=== PATIENT | female | born 1975 | race Hispanic/Latino ===

== ENCOUNTER → 2023-08-29 | Outpatient (CLI) | payer OTHER | END | disposition home or self-care (01) | LOC: RAH 10:30 | PROVIDERS: ATTEND Family Medicine | DX: Z12.31 Encounter for screening mammogram for malignant neoplasm of breast (principal); N63.31 Unspecified lump in axillary tail of the right breast; L72.3 Sebaceous cyst | CPT/HCPCS: 76882; 77067 ==

== ENCOUNTER → 2023-09-19 | Outpatient (CLI) | payer OTHER | END | disposition home or self-care (01) | LOC: RAH 14:22 | PROVIDERS: ATTEND Nurse Practitioner Family | DX: N60.81 Other benign mammary dysplasias of right breast (principal); R92.8 Other abnormal and inconclusive findings on diagnostic imaging of breast | CPT/HCPCS: 76641; 77065 ==

== ENCOUNTER 2023-12-30 13:01 | Emergency (ER) | payer OTHER ==
[~2023-12-30] VITALS: Ht 160 cm; Wt 61.2 kg
[2023-12-30] MEDS: LIDOCAINE HCL 1% 20 ML VIAL INJ STA (17:01)
[2023-12-30] MEDS ORDERED: SULF1TAB42 PO (17:51)
[2023-12-30 18:17] VITALS: BP 124/57; PULSE 98; RESP 14; O2SAT 97
[2023-12-30] MEDS: HYDROCODONE/ACETAMINOPHEN 5/325 MG TAB PO ONE (18:31)
== END 2023-12-30 18:38 | disposition home or self-care (01) ==
LOC: EDH 13:01
DX: L02.411 Cutaneous abscess of right axilla (principal); Z79.899 Other long term (current) drug therapy; Z98.890 Other specified postprocedural states
CPT/HCPCS: 10060

== ENCOUNTER 2025-01-17 13:14 | Emergency (ER) | payer SELFPAY ==
[~2025-01-17] VITALS: Ht 157.5 cm; Wt 63.5 kg
[~2025-01-17 13:14] MED LIST: CEPH500B PO; PANT40TA55 PO; SULF1TAB42 PO
--- NOTE | 2025-01-17 13:20 | NUR ---
EKG COMPLETE IN TRIAGE
--- NOTE | 2025-01-17 14:16 | EKG ---
[facility] Test Date: 2025-01-17 Test Time: 13:17:40 Pat Name: EJ YOUSSEF Department: ED Room: Gender: F Head Inspector: [id number] : 1975 Requested By: FAY GELLER Order Number: [id number] Reading MD: Rafael Hernandez Measurements Intervals Nova Rate: 75 P: 47 FL: 155 QRS: -34 QRSD: 85 T: 42 QT: 384 QTc: 428 Interpretive Statements Sinus rhythm Left axis deviation No previous ECG available for comparison Electronically Signed On 01-20-2025 10:43:48 CDT by Rafael Hernandez Please click the below link to view image of tracing.
[2025-01-17 14:25] LABS: IMMATURE GRANULOCYTE ABSOLUTE 0.02 K/uL (0-1); NUCLEATED RED BLOOD CELLS 0.0 % (0.0-0.19); PLATELET COUNT (AUTO) 151 K/uL (130-400); RED BLOOD CELL COUNT(AUTO) 4.77 MIL/uL (4.00-5.50); RED CELL DISTRIBUTION WIDTH 13.3 % (11.0-15.5); WHITE BLOOD COUNT (AUTO) 5.6 K/uL (4.8-10.8)
[2025-01-17 14:26] LABS: APPEARANCE,URINE TURBID (CLEAR); GLUCOSE, URINE (UA) NEGATIVE (NEGATIVE); LEUKOCYTE ESTERASE ,URINE NEGATIVE Leu/uL (NEGATIVE); NITRATE,URINE NEGATIVE (NEGATIVE); OCCULT BLOOD,URINE NEGATIVE (NEGATIVE)
[2025-01-17 14:32] LABS: CREATININE 1.0 mg/dL (0.5-1.0); GLOMERULAR FILTR. RATE CALC 69.0 mL/min (>90); GLUCOSE,RANDOM 88.0 mg/dL (70-105); SODIUM SERUM 139.0 mmol/L (136-145); UREA NITROGEN, BLOOD 14.0 mg/dL (7-18)
[2025-01-17 14:35] LABS: ADD UA MICROSCOPIC YES
[2025-01-17 14:36] LABS: CREATINE KINASE, TOTAL 48.0 U/L (21-232)
[2025-01-17 14:38] LABS: ASPARTATE AMINOTRANSFERASE 16.0 U/L (10-37); TOTAL PROTEIN, SERUM 7.5 g/dL (6.0-8.3)
[2025-01-17 14:48] LABS: SQUAMOUS EPITHELIAL CELL,UR FEW /HPF (0-2); UNCLASSIFIED CRYSTAL 27 /HPF (None Seen)
[2025-01-17 15:33] LABS: ERYTHROCYTE SEDIMENTATION RATE 12 MM/HR (0-30)
[2025-01-17] MEDS ORDERED: MELO-108 PO (15:42)
--- NOTE | 2025-01-17 15:42 | ERN ---
General Chief Complaint: Chest Pain Stated Complaint: LEFT CHEST PAIN X5 DAYS Time Seen by MD: 13:17 History of Present Illness Initial Comments 49-year-old female, no medical comorbidities, presents for left-sided chest pain and shoulder pain. She reports a pain in the left upper chest and into the left shoulder and left flank area that increases with certain movements and deep respiration. No fevers cough congestion dyspnea swelling or any other symptoms. She reports when she was younger she did get a pleuritic infection requiring admission, but otherwise has no medical comorbidities. Pain/symptoms are nonexertional. Allergies: Coded Allergies: No Known Drug Allergies (Unverified Allergy, Unknown, 12/30/23) Home Meds Active Scripts Cephalexin Monohydrate (Keflex) 500 Mg Cap, 1 CAP PO BID for 10 Days, #20 CAP 0 Refills Prov:TORREY MONTERO MD 08/14/24 Pantoprazole Sodium (Protonix) 40 Mg Ectab, 1 TAB PO DAILY for 30 Days, #30 TAB 0 Refills Prov:TORREY MONTERO MD 08/14/24 Sulfamethoxazole/Trimethoprim (Bactrim Ds Tablet) 800 Mg-160 Mg Tablet, 1 TAB PO BID for 7 Days, #14 TAB 0 Refills Prov:JACKSON WHALEY NP 12/30/23 Past Medical History Past Medical History: Other Medical History Other: PLEURISY Past Surgical History: None Surgical History Other: RT AXILLARY ABSCESS DRAIN ROS Dictation CONSTITUTIONAL: No chills, no fever, no weakness, no diaphoresis, no malaise. HEAD/FACE: No signs of trauma. EENT: No eye pain, no blurred vision, no tearing, no double vision, no ear pain, no ear discharge, no nose pain, no nasal congestion, no throat pain, no throat swelling, no mouth pain. RESPIRATORY: No cough, no orthopnea, no SOB, no stridor, no wheezing. CARDIOVASCULAR: Chest pain. GASTROINTESTINAL/ABDOMINAL: No abdominal pain, no constipation, no diarrhea, no nausea, no vomiting. GENITOURINARY: No abnormal discharge, no dysuria, no frequent urination, no hematuria. No complaints of pain in the genitals. MUSCULOSKELETAL: No back pain, no gout, no joint pain, no joint swelling, no muscle pain, no muscle stiffness, no neck pain. INTEGUMENTARY: No change in color, no change in hair/nails, no dryness, no lesion, no lumps, no rash. NEUROLOGICAL/PSYCH: No anxiety, not depressed, no emotional problem, no headache, no numbness, no pre-existing deficit, no history of seizures, no tremors, no weakness. HEMATOLOGIC/LYMPHATIC: Not anemic, no history of blood clots, no apparent bleeding, no bruising, glands not swollen. All Systems Negative, Except as Noted. Physical Exam Physical Exam Dictation VITAL SIGNS: Reviewed. GENERAL APPEARANCE: Alert, oriented x3, no acute distress. HEAD AND FACE: Non-traumatic. EYES: PERRL, pink conjunctivas, eyelid no trauma, anterior chamber clear. EARS: Pinnas intact and no signs of trauma or erythema. Ear canals clear and no discharge. TMs no erythema. NOSE: No discharge, no bleeding. OROPHARYNX: Mouth normal, teeth no caries, tongue pink. Pharynx clear, no erythema. Tonsils no exudates, no abscesses noted. Mucous membrane moist. NECK: Supple, non-tender, no thyromegaly, no masses, no JVD, no bruits. BREAST: Deferred. CHEST: No tenderness, no crepitus, no paradoxical movement, no retractions. LUNGS: Clear, well-ventilated, symmetric, no rales, no wheezing, no rhonchi, no stridor, good breath sounds bilaterally. HEART: Regular rate, regular rhythm, no murmur, no gallops. VASCULAR: No peripheral edema. ABDOMEN: Soft, positive bowel sounds, nondistended, no guarding, nontender, no rebound, no masses no hepatomegaly, no splenomegaly, no Balderas's sign, no hernias. RECTAL: Deferred. GENITAL: Deferred. NEUROLOGICAL: Normal speech, gross motor function intact, gross sensory function intact. MUSCULOSKELETAL: Neck nontender, full range of motion, back nontender, full range of motion. EXTREMITIES: Nontender, full range of motion. SKIN: Color pink, dry, no turgor, no rash, no lacerations, no abrasions, no contusions. LYMPHATICS: Deferred. Results Laboratory and Microbiology Lab and Micro Result Laboratory Tests Test 01/17/25 13:57 01/17/25 14:03 Urine Color LIGHT-YELLOW (YELLOW) Urine Appearance TURBID (CLEAR) Urine pH 7.5 (5.0-8.0) Urine Specific Juliette 1.016 (1.001-1.031) Urine Protein NEGATIVE mg/dL (NEGATIVE) Urine Glucose (UA) NEGATIVE mg/dL (NEGATIVE) Urine Ketones NEGATIVE mg/dL (NEGATIVE) Urine Occult Blood NEGATIVE (NEGATIVE) Urine Nitrate NEGATIVE (NEGATIVE) Urine Bilirubin NEGATIVE mg/dL (NEGATIVE) Urine Urobilinogen 0.2 mg/dL (0.2-1.0) Urine Leukocyte Esterase NEGATIVE Bessy/uL Urine RBC None /HPF (0-1) Urine WBC 26-50 /HPF (0-1) H Urine Squamous Epithelial Cells FEW /HPF (0-2) Urine Other Crystals (Auto) 27 /HPF (None Seen) Urine Amorphous Crystals (Auto) MOD /LPF (None Seen) Urine Bacteria FEW /HPF (None Seen) Urine HCG, Qualitative NEGATIVE (NEGATIVE) White Blood Count 5.6 K/uL (4.8-10.8) Red Blood Count 4.77 MIL/uL (4.00-5.50) Hemoglobin 13.8 g/dL (12.0-16.0) Hematocrit 41.8 % (36-48) Mean Corpuscular Volume 87.6 fL (79-99) Mean Corpuscular Hemoglobin 28.9 pg (27.0-33.0) Mean Corpuscular Hemoglobin Concent 33.0 g/dL (32.0-36.0) Red Cell Distribution Width 13.3 % (11.0-15.5) Platelet Count 151 K/uL (130-400) Mean Platelet Volume 12.7 fL (7.5-10.5) H Immature Granulocyte % (Auto) 0.4 % (0-1) Neutrophils (%) (Auto) 60.6 % (40.0-77.0) Lymphocytes (%) (Auto) 30.3 % (21.0-51.0) Monocytes (%) (Auto) 6.8 % (3.0-13.0) Eosinophils (%) (Auto) 1.4 % (0.0-8.0) Basophils (%) (Auto) 0.5 % (0.0-5.0) Neutrophils # (Auto) 3.4 K/uL (1.8-7.7) Lymphocytes # (Auto) 1.7 K/uL (1.0-4.8) Monocytes # (Auto) 0.4 K/uL (0.1-1.0) Eosinophils # (Auto) 0.08 K/uL (0.00-0.70) Basophils # (Auto) 0.03 K/uL (0.00-0.20) Absolute Immature Granulocyte (auto 0.02 K/uL (0-1) Nucleated Red Blood Cells 0.0 % (0.0-0.19) Erythrocyte Sedimentation Rate 12 MM/HR (0-30) D-Dimer Quantitative (PE/DVT) 245 ng/mL (0-500) Sodium Level 139 mmol/L (136-145) Potassium Level 3.8 mmol/L (3.5-5.1) Chloride Level 102 mmol/L (101-111) Carbon Dioxide Level 29 mmol/L (21-32) Blood Urea Nitrogen 14 mg/dL (7-18) Creatinine 1.0 mg/dL (0.5-1.0) Glomerular Filtration Rate Calc 69 mL/min (>90) Random Glucose 88 mg/dL (70-105) Total Calcium 9.2 mg/dL (8.5-10.1) Total Bilirubin 0.4 mg/dL (0.2-1.0) Direct Bilirubin 0.1 mg/dL (0.0-0.3) Aspartate Amino Transf (AST/SGOT) 16 U/L (10-37) Alanine Aminotransferase (ALT/SGPT) 20 U/L (12-78) Alkaline Phosphatase 71 U/L (50-136) Total Creatine Kinase 48 U/L (21-232) Troponin I High Sensitivity < 4 ng/L (4-50) L C-Reactive Protein, Quantitative 0.70 mg/L (0.5-3.0) B-Type Natriuretic Peptide < 5 pg/mL (0-100) Total Protein 7.5 g/dL (6.0-8.3) Albumin 4.1 g/dL (3.5-5.0) Lipase 59 U/L (16-77) MDM CC: Chest pains on and off for the last five days. Differential diagnosis: ACS, MSK pain, pleuritic pain, pneumothorax, TAD, PE, other Limitations by social determinants of health: None Comorbidities: None Vital signs: Stable, remained stable in the ER EKG (independently ordered and interpreted by me): Sinus rhythm, rate 75, legs axis deviation, good R-wave progression, intervals are stable no STEMI. CXR (independently ordered and interpreted by me): No cardiomegaly, pleural effusions, or focal infiltrates. Labs (independently ordered and interpreted by me): CBC is normal, metabolic panel is normal, liver enzymes normal, troponin normal, CRP, ESR, D-dimer normal. BNP normal. Lipase normal. Urinalysis unremarkable. Patient has a heart score of one for age otherwise no risk factors. Very low suspicion for any life threats at this time. I suspect the patient may still have musculoskeletal type pain. We will discharge with meloxicam and recommend PCP follow up as needed. ED Course Orders Procedure Category Date Status Time 12 Lead Ekg Tracing- EKG 01/17/25 Complete Technical 13:24 Vital Signs Per CPOE 01/17/25 Transmitted Routine 13:39 Chest 1vw RAD 01/17/25 Taken 13:39 Oxygen By Nc/Pulse Ox CPOE 01/17/25 Transmitted 13:39 Maintain Iv CPOE 01/17/25 Transmitted 13:39 Iv Insertion CPOE 01/17/25 Transmitted 13:39 Cardiac Monitoring CPOE 01/17/25 Transmitted 13:39 Pulse Oximetry With CPOE 01/17/25 Transmitted Vs And Prn 13:39 Cbc With Differential LAB 01/17/25 Complete 13:39 Activity: Br W/Brp CPOE 01/17/25 Transmitted With Assist 13:39 Creatine Kinase, Total LAB 01/17/25 Complete 13:39 Troponin I High LAB 01/17/25 Complete Sensitivity 13:39 Urinalysis Profile LAB 01/17/25 Complete 13:39 Basic Metabolic Panel LAB 01/17/25 Complete 13:39 D-Dimer LAB 01/17/25 Complete 13:49 Crp Quantitative LAB 01/17/25 Complete 13:49 Erythrocyte LAB 01/17/25 Complete Sedimentation Rate 13:49 B-Type Natriuretic LAB 01/17/25 Complete Peptide 13:49 Hepatic Function Panel LAB 01/17/25 Complete 13:49 Lipase LAB 01/17/25 Complete 13:49 ,Urine Test LAB 01/17/25 Complete 14:04 Ketorolac PHA 01/17/25 Complete Tromethamine 15mg/Ml 14:30 Culture Urine AYSHA 01/17/25 In Process 14:53 Current Medications Medications (Trade) Dose Ordered Sig/Linda Route PRN Reason Start Time Stop Time Status Last Admin Dose Admin Ketorolac Tromethamine (toRADol) 15 mg ONCE ONCE IV 01/17/25 14:30 01/17/25 14:31 DC 01/17/25 14:37 Vital Signs Date Time Temp Pulse Resp B/P (MAP) Pulse Ox O2 Delivery O2 Flow Rate FiO2 01/17/25 14:20 71 19 104/55 98 Room Air* 0 21 01/17/25 13:15 99.0 76 14 115/80 99 Room Air 0 DX & DISP Disposition: Discharge Departure Impression: Primary Impression: Chest pain, non-cardiac Condition: Stable Scripts Meloxicam (Meloxicam) 15 Mg Tablet 15 MG PO DAILY PRN for PAIN for 10 Days, #10 TAB Prov: FAY GELLER DO 01/17/25 Additional Instructions: There are no dangerous findings on your workup here today. Your symptoms are likely musculoskeletal in nature. Your EKG is normal. Your chest x-ray is normal. Your lab work (CBC, metabolic panel, liver enzymes, lipase, troponin, CRP, ESR, D-dimer, BNP, urinalysis) is normal. I have prescribed meloxicam, which is a nonsteroidal anti-inflammatory pain medication. You can take this once per day for the next week. Take with food. As we discussed, if you continue with symptoms, please follow up with your primary doctor for further evaluation. Please return to the emergency department as needed. Referrals: ITZEL ERICKSON (PCP) FAY GELLER DO Jan 17, 2025 15:42
[2025-01-17 15:45] VITALS: BP 105/70; PULSE 68; RESP 19; TEMP 98.2; O2SAT 98
--- NOTE | 2025-01-17 15:57 | HMCIMG ---
EXAM: CR Chest, 1 View. CLINICAL HISTORY: CHEST PAIN FINDINGS: LUNGS: There is no mass, infiltrate, or acute pulmonary abnormality. PLEURAL SPACES: No pleural effusion or pneumothorax. MEDIASTINUM: Cardiac size and mediastinal contours within normal limits. BONES: No aggressive appearing osseous lesion seen. IMPRESSION: No acute cardiopulmonary pathology is evident. /[place]
== END 2025-01-17 15:52 | disposition home or self-care (01) ==
LOC: EDH 13:14
DX: R07.89 Other chest pain (principal); R10.9 Unspecified abdominal pain; M25.512 Pain in left shoulder; Z79.899 Other long term (current) drug therapy
CPT/HCPCS: 99285; 96374; 71045; 82550; 80076; 84484; 80048; 83880; 83690; 85025; 85378; 85651; 87086; 86140; 81001; 81025; 36415; 93005; J1885; 96365